=== PATIENT | male | born 1990 | race Two or more races ===

== ENCOUNTER 2018-10-11 13:40 | Emergency (ER) | payer OTHER ==
[~2018-10-11] VITALS: Ht 185.4 cm; Wt 99.8 kg
[2018-10-11 18:30] VITALS: BP 142/92
[2018-10-11] MEDS ORDERED: IBUPROFEN 800 MG TAB PO ONE (19:45)
[2018-10-11] MEDS ORDERED: cefTRIAXone SOD 1,000 MG VL IM ONE (19:45)
== END 2018-10-11 20:05 | disposition home or self-care (01) ==
LOC: ER 13:44
DX: S61.237A Puncture wound without foreign body of left little finger without damage to nail, initial encounter (principal); L03.011 Cellulitis of right finger; W55.01XA Bitten by cat, initial encounter; Y93.89 Activity, other specified; Y99.8 Other external cause status; Y92.098 Other place in other non-institutional residence as the place of occurrence of the external cause
CPT/HCPCS: 73140; 96372; 99283; J0696